=== PATIENT | male | born 1990 | race Caucasian/White ===

== ENCOUNTER 2019-01-02 11:15 | Inpatient (IN) | payer OTHER ==
[~2019-01-02] VITALS: Ht 172.7 cm; Wt 51.7 kg
[2019-01-02 11:21] VITALS: BP 115/60
--- NOTE | 2019-01-02 11:31 | NUR ---
pt amb to er bed 4
--- NOTE | 2019-01-02 11:38 | NUR ---
PT BIB FAMILY TO THE ED WITH THE CHIEF C/O LOW HEMOGLOBIN. PT WAS EXPERIENCING FATIGUE , SOB WITHOUT ACTIVITIES FOR 2 MONTHS. SYMPTOMS GOT WORSE FOR LAST 2 WEEKS. SEEN BY PCP ON MONDAY. LAB WORKS DONE THERE AND HB RESULTS CAME 4.1. PCP REFERRED HIM TO ER. PT APPEARS PALE AND TACHYCARDIC AT THIS TIME. NO SOB OR ACUTE RESPIRATORY DISTRESS NOTED. DENIES ANY RECENT BLEEDING. DENIES ANY MEDICAL HX. DENIES N/V/D. DENIES PAIN AT THIS TIME. LUNGS CLEAR. ABD SOFT ROUND AND NONTENDER. ACTIVE BOWEL SOUND. SKIN INTACT.
[2019-01-02 12:25] LABS: MEAN CORPUSCULAR HEMOGLOBIN 18 pg (27-31); MEAN CORPUSCULAR HGB CONC 28 g/dL (33-37); MEAN CORPUSCULAR VOLUME 64.2 fL (80-94); PLATELET COUNT (AUTO) 257 K/uL (140-450); RED CELL DISTRIBUTION WIDTH 19.7 % (11.6-13.7); WHITE BLOOD COUNT (AUTO) 3.2 K/uL (4.8-10.8)
[2019-01-02 12:45] LABS: ANION GAP 10.4 (8-16); CARBON DIOXIDE 28.2 mmol/L (21-32); CREATININE 0.9 mg/dL (0.7-1.3); POTASSIUM 3.6 mmol/L (3.5-5.1)
[2019-01-02 12:51] LABS: TOTAL BILIRUBIN 0.3 mg/dL (0.0-1.0)
[2019-01-02 12:52] LABS: HEMATOCRIT 14.8 % (36-52)
[2019-01-02 12:55] LABS: HEMOGLOBIN 4.1 g/dL (12.0-18.0)
[2019-01-02 13:06] LABS: APPEARANCE,URINE CLEAR (CLEAR); BILIRUBIN,URINE NEGATIVE (NEGATIVE); BLOOD, URINE NEGATIVE (NEGATIVE); COLOR,URINE YELLOW (YELLOW); LEUKOCYTE ESTERASE ,URINE NEGATIVE (NEGATIVE); NITRITE, URINE NEGATIVE (NEGATIVE); UGLUCOSE NEGATIVE (NEGATIVE)
[2019-01-02 13:15] LABS: RBC,URINE 0-5 /HPF (0-5); WBC,URINE 0-5 /HPF (0-5)
[2019-01-02 13:25] LABS: BASOPHILS % (MANUAL) 1 % (0-2); EOSINOPHILS % (MANUAL) 2 % (0-4); LYMPHOCYTES % (MANUAL) 24 % (20-46); MONOCYTES % (MANUAL) 9 % (5-12)
[2019-01-02 13:45] VITALS: BP 109/65
--- NOTE | 2019-01-02 13:45 | NUR ---
RECEIVED BEDSIDE REPORT FROM ER NURSE. PATIENT ON MED SURGE FLOOR AND STANDARD PRECAUTIONS IN PLACE. PATIENT AAOX4, ON ROOM AIR, NO DISTRESS NOTED. SKIN INTACT. IV ON R AC 18G, IV PATENT AND INTACT. BED IN LOW POSITION, CALL LIGHT WITHIN REACH, SIDE RAILS X2 UP
--- NOTE | 2019-01-02 13:48 | NUR ---
Pt transferred to Med/Surg via W/C WITH LAURA CARTWRIGHT.
--- NOTE | 2019-01-02 13:48 | NUR ---
Patient will be admitted to care of DR OROZCO. Admited to MED SURG. Will go to [id number]. Belongings list completed. Report to LAURA FLYNN.
[2019-01-02] MEDS ORDERED: ONDANSETRON 4 MG/2 ML VIAL IVP PRN (15:45)
[2019-01-02] MEDS ORDERED: ACETAMINOPHEN 325 MG TAB PO PRN (15:45)
[2019-01-02 16:00] VITALS: BP 103/59
--- NOTE | 2019-01-02 17:28 | NUR ---
DR. REHMAN AT BEDSIDE
--- NOTE | 2019-01-02 18:00 | NUR ---
DR. FERNANDO AT BEDSIDE
--- NOTE | 2019-01-02 18:14 | NUR ---
BLOOD TRANSFUSION STARTING
--- NOTE | 2019-01-02 19:25 | NUR ---
BEDSIDE REPORT GIVEN TO DIRECTOR MERIT SYSTEM RN. PATIENT ENDORSED IN STABLE CONDTIION
--- NOTE | 2019-01-02 19:25 | NUR ---
RECEIVED REPORT FROM AM SHIFT NURSE FOR CONTINUITY OF CARE. PATIENT IS ON ROOM AIR. IV IS ON RIGHT ANTECUBITAL 18GA. PATIENT IS CURRENTLY HAVING 1ST UNIT OF BLOOD TRANSFUSION. PATIENT DENIES ANY PAIN, AND IS IN STABLE CONDITION. WILL MONITOR PATIENT THROUGHOUT SHIFT.
--- NOTE | 2019-01-02 20:45 | NUR ---
CONSENT FOR BOTH EGD AND COLONOSCOPY SIGNED BY PT. VERBALIZED UNDERSTANDING OF THE PROCEDURE.
[2019-01-02] MEDS ORDERED: SUPREP BOWEL PREP KIT 354 ML SOLN.RECON PO ONE (21:00)
--- NOTE | 2019-01-02 21:30 | NUR ---
1ST UNIT OF BLOOD ENDED AT 0. VITAL SIGNS ARE: BP 107/65, T 98.8, HR 9, RR 16, O2 100% ON ROOM AIR, PAIN 0/10. NO REACTION, NO COMPLICATIONS. WILL CONTINUE TO MONITOR PATIENT.
[2019-01-02] MEDS: LACTULOSE 20 GM/30 ML UDC PO SCH (21:32)
--- NOTE | 2019-01-02 21:33 | NUR ---
ADMINISTERED MEDICATIONS ORDERED. PATIENT TOLERATED THEM WELL. WILL CONTINUE TO MONITOR PATIENT.
[2019-01-02] MEDS: SODIUM FERRIC GLUCONATE 125 MG in NACL 0.9% 100 ML IV SCH (22:40)
--- NOTE | 2019-01-02 22:40 | NUR ---
DESIRAE WEBER ORDERED. PATIENT TOLERATING IT WELL. WILL CONTINUE TO MONITOR PATIENT. Addendum: 01/03/19 at 0324 by aJmi Justice RN *SPELLING CORRECTION* HUNG
[2019-01-03] VITALS (8 sets, daily range): BP systolic 95–112; BP diastolic 53–61
--- NOTE | 2019-01-03 | NUR ---
PATIENT LYING DOWN, ASLEEP. VITAL SIGNS TAKEN AND CHARTED. PATIENT DENIES ANY PAIN. WILL CONTINUE TO MONITOR PATIENT.
--- NOTE | 2019-01-03 01:15 | NUR ---
2ND UNIT OF BLOOD STARTED. VITAL SIGNS AT 0100 ARE FOLLOWS: BP 102/60, T 98.4, P 81, RR 19, 100% ON ROOM AIR, PAIN 0/10. WILL MONITOR PATIENT PER PROTOCOL.
--- NOTE | 2019-01-03 03:00 | NUR ---
MADE ROUNDS. PATIENT LYING DOWN IN BED. BLOOD STILL TRANSFUSING, NO SIGNS OF DISTRESS OR COMPLICATIONS. WILL CONTINUE TO MONITOR PATIENT.
--- NOTE | 2019-01-03 04:30 | NUR ---
2ND UNIT OF BLOOD TRANSFUSION ENDED. VITAL SIGNS ARE FOLLOWS: BP 105/58, T 97.9, P 82, RR 16, 100% ON ROOM AIR, PAIN 0/10. NO COMPLICATIONS OR SIGNS OF DISTRESS. WILL CONTINUE TO MONITOR PATIENT.
--- NOTE | 2019-01-03 05:15 | NUR ---
STARTED 3RD UNIT OF BLOOD TRANSFUSION. VITAL SIGNS AT 0500 ARE FOLLOWS: BP 99/59, T 98, P 73, RR 16, 100% ON ROOM AIR, PAIN 0/10. WILL CONTINUE TO MONITOR PATIENT PER BLOOD TRANSFUSION PROTOCOL.
--- NOTE | 2019-01-03 06:44 | NUR ---
CALLED ORI MACDONALD REGARDING PT STILL DIRTY AFTER THE SUPREP 177 ML LAST NIGHT. HE SAID TO GIVE THE OTHER BOTTLE FROM THE KIT NOW.
--- NOTE | 2019-01-03 07:22 | NUR ---
ENDORSED PT IN STABLE CONDITION TO AM NURSE.
--- NOTE | 2019-01-03 07:23 | NUR ---
RECEIVED ENDORSEMENT FROM MOUNTER CLARINETS NURSE. PATIENT IS AAOX4, COOK ISLANDER SPEAKING. RESPIRATIONS ARE EVEN AND UNLABORED ON ROOM AIR. PATIENT DENIES ANY PAIN AT THIS TIME. RIGHT AC 18G IV INTACT, PATENT, AND INFUSING BLOOD. PLAN OF CARE WAS REVIEWED WITH PATIENT, PATIENT VERBALIZED UNDERSTANDING. SAFETY MEASURES IN PLACE, CALL LIGHT WITHIN REACH.
--- NOTE | 2019-01-03 08:00 | NUR ---
VS ARE FOLLOWS: 97.3, 83, 112/61, 16, 100% ON ROOM AIR. PATIENT DENIES ANY PAIN AT THIS TIME, WILL CONTINUE TO MONITOR.
--- NOTE | 2019-01-03 08:45 | NUR ---
BLOOD TRANSFUSION COMPLETE. VS ARE FOLLOWS: 97.3, 80, 16, 113/63, 99% ON ROOM AIR. PATIENT DENIES ANY PAIN AT THIS TIME. NO OTHER NEEDS AT THIS TIME, WILL CONTINUE TO MONITOR.
[2019-01-03] MEDS: SENNA 8.6 MG TAB PO SCH ×3 (09:11→17:00)
[2019-01-03] MEDS: LACTULOSE 20 GM/30 ML UDC PO SCH ×3 (09:12→17:00)
--- NOTE | 2019-01-03 09:15 | NUR ---
ADMINISTERED SCHEDULED MEDICATIONS. PATIENT TOLERATED WELL. STATES THAT STOOL IS NOT YET CLEAR. NO OTHER NEEDS AT THIS TIME, WILL CONTINUE TO MONITOR.
--- NOTE | 2019-01-03 09:22 | NUR ---
PATIENT HAS BEEN SCREENED AND CATEGORIZED HIGH NUTRITION RISK. PATIENT WILL BE SEEN WITHIN 1-2 DAYS OF ADMISSION. 01/03/19-01/04/[address]
--- NOTE | 2019-01-03 10:14 | NUR ---
CONTACTED DR BAKARI MORALES'S OFFICE AT [phone], ABLE TO SPEAK TO HERMELINDO. SHE PROVIDED ME FOR FOLLOW UP VISIT ON JANUARY 17, 2019 AT 1530. COPY OF APPOINTMENT PROVIDED TO THE PATIENT.
--- NOTE | 2019-01-03 10:50 | NUR ---
PATIENT IS RESTING IN BED, DENIES ANY PAIN AT THIS TIME. NO OTHER NEEDS AT THIS TIME, WILL CONTINUE TO MONITOR.
--- NOTE | 2019-01-03 12:05 | NUR ---
PATIENT RESTING IN BED, FAMILY AT THE BEDSIDE. NO OTHER NEEDS AT THIS TIME, WILL CONTINUE TO MONITOR.
--- NOTE | 2019-01-03 13:44 | NUR ---
PATIENT STOOL STILL NOT CLEAR. PAGED . AWAITING CALL BACK.
[2019-01-03] MEDS ORDERED: fentaNYL 0.05 MG/ML VIAL ONE (13:54)
[2019-01-03] MEDS ORDERED: MIDAZOLAM 2 MG/2 ML VIAL ONE (13:55)
[2019-01-03] MEDS ORDERED: diphenhydrAMINE 50 MG/ML VIAL ONE (13:55)
--- NOTE | 2019-01-03 14:30 | NUR ---
PATIENT LEFT UNIT FOR PROCEDURE. WILL MONITOR UPON RETURN.
--- NOTE | 2019-01-03 14:43 | NUR ---
01/03/19 RD INITIAL ASSESSMENT COMPLETED PLEASE REFER TO NUTRITION ASSESSMENT UNDER CARE ACTIVITY FOR ESTIMATED NUTRITIONAL NEEDS. 1. CONTINUE NPO MEDICALLY NECESSARY 2. WHEN MEDICALLY APPROPRIATE, CONSIDER ADVANCING TO A REGULAR DIET 3. RD PROVIDED ANEMIA NUTRITION EDUCATION. PT ACCEPTED 4. RD TO FOLLOW-UP 5-7 DAYS, LOW RISK [address]IE [address]
--- NOTE | 2019-01-03 15:35 | NUR ---
PATIENT ARRIVED BACK TO UNIT VIA GURNEY. RESPIRATIONS ARE EVEN AND UNLABORED ON ROOM AIR. VS ARE STABLE PATIENT DENIES ANY PAIN. NO OTHER NEEDS, WILL CONTINUE TO MONITOR.
[2019-01-03 16:10] LABS: BASOPHILS # (AUTO) 0.1 K/uL (0.00-0.22); BASOPHILS % (AUTO) 1.9 % (0.0-2.0); EOSINOPHILS # (AUTO) 0.1 K/uL (0-0.4); EOSINOPHILS % (AUTO) 2.9 % (0.0-4.0); HEMATOCRIT 22.9 % (36-52); HEMOGLOBIN 7.1 g/dL (12.0-18.0); LYMPHOCYTES # (AUTO) 0.8 K/uL (2.0-11.5); LYMPHOCYTES % (AUTO) 22.3 % (20.5-51.1); MEAN CORPUSCULAR HEMOGLOBIN 23 pg (27-31); MEAN CORPUSCULAR HGB CONC 31 g/dL (33-37); MEAN CORPUSCULAR VOLUME 72.8 fL (80-94); MONOCYTES # (AUTO) 0.4 K/uL (0.8-1.0); MONOCYTES % (AUTO) 12.1 % (1.7-9.3); NEUTROPHILS # (AUTO) 2.1 K/uL (1.8-7.7); NEUTROPHILS % (AUTO) 60.8 % (42.2-75.2); PLATELET COUNT (AUTO) 179 K/uL (140-450); RED BLOOD CELL COUNT(AUTO) 3.15 MIL/uL (4.20-6.10); RED CELL DISTRIBUTION WIDTH 23.9 % (11.6-13.7); WHITE BLOOD COUNT (AUTO) 3.4 K/uL (4.8-10.8)
[2019-01-03 16:18] LABS: ANION GAP 10.7 (8-16); CARBON DIOXIDE 26.7 mmol/L (21-32); CREATININE 0.7 mg/dL (0.7-1.3); POTASSIUM 3.4 mmol/L (3.5-5.1)
--- NOTE | 2019-01-03 16:26 | NUR ---
PAGED DR. OROZCO FOR PATIENTS POTASSIUM OF 3.4. AWAITING CALL BACK
--- NOTE | 2019-01-03 17:41 | NUR ---
PATIENT RESTING IN BED, MOM IS PRESENT AT THE BEDSIDE. PATIENT DENIES ANY PAIN. OTHER NEEDS AT THIS TIME, WILL CONTINUE TO MONITOR.
[2019-01-03] MEDS ORDERED: POTASSIUM CHLORIDE 10 MEQ TABER PO SCH (18:00)
[2019-01-03] MEDS ORDERED: fentaNYL 0.05 MG/ML VIAL IVP ONE (18:25)
[2019-01-03] MEDS ORDERED: MIDAZOLAM 2 MG/2 ML VIAL IVP ONE (18:25)
--- NOTE | 2019-01-03 19:22 | NUR ---
ENDORSED TO NAPRAPATH NURSE FOR CONTINUITY OF CARE. PATIENT IS STABLE AT THIS TIME.
--- NOTE | 2019-01-03 19:25 | NUR ---
RECEIVED REPORT FROM AM SHIFT NURSE FOR CONTINUITY OF CARE. PATIENT IS IN STABLE CONDITION. WILL MONITOR PATIENT THROUGHOUT SHIFT.
--- NOTE | 2019-01-03 21:30 | NUR ---
MADE ROUNDS. PATIENT LYING DOWN IN BED, AWAKE, AND DENIES ANY PAIN AT THIS TIME. WILL CONTINUE TO MONITOR PATIENT.
[2019-01-03] MEDS: SODIUM FERRIC GLUCONATE 125 MG in NACL 0.9% 100 ML IV SCH (23:17)
--- NOTE | 2019-01-03 23:17 | NUR ---
MALINDA AND ADMINISTERED IV FERRLECIT. CURRENT IV SITE INFILTRATED, PATIENT COMPLAINS OF MILD PAIN WHEN FLUSHING WITH NORMAL SALINE. STARTED NEW IV ON LEFT FOREARM 22 GA. PATIENT TOLERATED IT WELL.
[2019-01-04] VITALS: BP 99/57
--- NOTE | 2019-01-04 01:00 | NUR ---
MADE ROUNDS. PATIENT LYING DOWN, ASLEEP, WITH NO SIGNS OF DISTRESS. WILL CONTINUE TO MONITOR PATIENT.
--- NOTE | 2019-01-04 03:30 | NUR ---
PATIENT LYING DOWN, ASLEEP. NO SIGNS OF DISTRESS. WILL CONTINUE TO MONITOR PATIENT.
--- NOTE | 2019-01-04 04:00 | NUR ---
MADE ROUNDS . PT ASLEEP. NO S/S OF AN DISCOMFORT NOTED.
--- NOTE | 2019-01-04 06:00 | NUR ---
PT IS AWAKE WITH NO C/O OF ANY PAIN NOR DISCOMFORT NOTED.
[2019-01-04 06:15] LABS: ALBUMIN 3.3 g/dL (3.4-5.0); ANION GAP 12.7 (8-16); CARBON DIOXIDE 26.8 mmol/L (21-32); CREATININE 0.9 mg/dL (0.7-1.3); POTASSIUM 4.5 mmol/L (3.5-5.1); TOTAL BILIRUBIN 0.8 mg/dL (0.0-1.0)
--- NOTE | 2019-01-04 07:15 | NUR ---
ENDORSED PATIENT TO AM SHIFT NURSE FOR CONTINUITY OF CARE. PATIENT IS ASLEEP WITH NO SIGNS OF DISTRESS.
--- NOTE | 2019-01-04 07:24 | NUR ---
RECEIVED BEDSIDE REPORT FROM RADIATION SAFETY OFFICER NURSE. PATIENT IS AAOX4, HUNGARIAN SPEAKING. RESPIRATIONS ARE EVEN AND UNLABORED ON ROOM AIR. PATIENT DENIES ANY PAIN AT THIS TIME. PT HAS LEFT FA 22G IV THAT IS INTACT, PATENT AND SALINE LOCKED. PLAN OF CARE WAS REVIEWED WITH PATIENT, PATIENT VERBALIZED UNDERSTANDING. SAFETY MEASURES IN PLACE, CALL LIGHT WITHIN REACH. BED IN LOW POSITION. WILL ROUND FREQUENTLY ON PT.
[2019-01-04 07:47] LABS: BASOPHILS # (AUTO) 0.1 K/uL (0.00-0.22); BASOPHILS % (AUTO) 1.4 % (0.0-2.0); EOSINOPHILS # (AUTO) 0.2 K/uL (0-0.4); EOSINOPHILS % (AUTO) 4.4 % (0.0-4.0); HEMATOCRIT 23.6 % (36-52); HEMOGLOBIN 7.3 g/dL (12.0-18.0); LYMPHOCYTES # (AUTO) 1.3 K/uL (2.0-11.5); LYMPHOCYTES % (AUTO) 24.1 % (20.5-51.1); MEAN CORPUSCULAR HEMOGLOBIN 23 pg (27-31); MEAN CORPUSCULAR HGB CONC 31 g/dL (33-37); MONOCYTES # (AUTO) 0.6 K/uL (0.8-1.0); MONOCYTES % (AUTO) 10.2 % (1.7-9.3); NEUTROPHILS # (AUTO) 3.3 K/uL (1.8-7.7); NEUTROPHILS % (AUTO) 59.9 % (42.2-75.2); PLATELET COUNT (AUTO) 190 K/uL (140-450); RED BLOOD CELL COUNT(AUTO) 3.24 MIL/uL (4.20-6.10); RED CELL DISTRIBUTION WIDTH 24.8 % (11.6-13.7); WHITE BLOOD COUNT (AUTO) 5.4 K/uL (4.8-10.8)
[2019-01-04 08:00] VITALS: BP 108/61
[2019-01-04] MEDS ORDERED: LACTULOSE 20 GM/30 ML UDC PO SCH (09:00)
--- NOTE | 2019-01-04 09:37 | NUR ---
PT RESTING IN BED. NO COMPLAINTS OF PAIN OR DISTRESS AT THIS TIME. WILL CONTINUE TO ROUND FREQUENTLY ON PT. BED IN LOW POSITION, CALL LIGHT WITHIN REACH.
--- NOTE | 2019-01-04 11:24 | NUR ---
PT RESTING IN BED READING BOOK. PT DENIES PAIN OR DISTRESS. NO SOB NOTED. WILL CONTINUE TO ROUND FREQUENTLY ON PT. BED IN LOW POSITION, CALL LIGHT WITHIN REACH.
--- NOTE | 2019-01-04 13:45 | NUR ---
CALLED OFFICE OF DR MORALES [phone], SPOKE TO TAMARA, FOLLOW-UP APPOINTMENT MADE ON JANUARY 07, 2019 AT 1215PM AT [address] [facility] [address], [place] [address]. APPOINTMENT SCHEDULE GIVEN TO PATIENT AND INSTRUCTED PATIENT TO BRING ALL DISCHARGE PAPERS AND DC INSTRUCTIONS UPON MD VISIT, PATIENT VERBALIZED UNDERSTANDING.
--- NOTE | 2019-01-04 13:48 | NUR ---
PT RESTING IN BED TALKING ON PHONE. NO COMPLAINTS OF PAIN OR DISTRESS. WILL CONTINUE TO ROUND FREQUENTLY ON PT.
--- NOTE | 2019-01-04 15:47 | NUR ---
PT RESTING IN BED. ALL NEEDS CURRENTLY MET. WILL ROUND FREQUENTLY ON PT.
[2019-01-04 16:00] VITALS: BP 103/62
--- NOTE | 2019-01-04 17:40 | NUR ---
PT DISCHARGED HOME FOR SELF CARE. DISCHARGE TEACHING GIVEN TO PT. PT VERBALIZED UNDERSTANDING. PT HAS FOLLOWUP VISIT WITH PCP IN 1 1/2 WEEKS. ALL DISCHARGE PAPERWORK WAS SIGNED. IV REMOVED WITH TIP INTACT. WRISTBANDS REMOVED AND PLACED IN SHRED BIN. ALL PERSONAL BELONGINGS TAKEN WITH PT. PT LEFT HOME IN STABLE CONDITION ACCOMPANIED BY AUNT AND GRANDMA.
== END 2019-01-04 17:40 | disposition home or self-care (01) | DRG 663 ==
LOC: MED 11:15 → MTU 13:18
PROVIDERS: ADMIT Internal Medicine Pulmonary Disease; ATTEND Internal Medicine Pulmonary Disease
PROC: 30233N1 Transfusion of Nonautologous Red Blood Cells into Peripheral Vein, Percutaneous Approach (ICD-10-PCS; principal; 2019-01-02)
PROC: 0DJD8ZZ Inspection of Lower Intestinal Tract, Via Natural or Artificial Opening Endoscopic (ICD-10-PCS; 2019-01-03)
PROC: 0DB68ZX Excision of Stomach, Via Natural or Artificial Opening Endoscopic, Diagnostic (ICD-10-PCS; 2019-01-03 14:30)
DX: D50.9 Iron deficiency anemia, unspecified (principal); K29.71 Gastritis, unspecified, with bleeding
CPT/HCPCS: 36415; 80048; 80053; 81001; 82728; 82746; 82948; 83540; 83690; 85025; 85610; 85730; 86677; 86886; 86900; 86901; 86920; 87081; 88305; 93005; 99285; J1200; J2250; J2916; J3010; J7030; P9016